=== PATIENT | female | born 1940 | race Caucasian/White ===

== ENCOUNTER 2018-06-18 20:01 | Emergency (ER) | payer MEDICARE, OTHER ==
--- NOTE | 2018-06-18 20:13 | EDM.PDOC ---
ED HPI GENERAL MEDICAL PROBLEM - General Chief Complaint: Trauma Stated Complaint: AMBULANCE Time Seen by Provider: 06/18/18 20:04 Source of Information: Reports: Patient History Limitations: Reports: No Limitations - History of Present Illness INITIAL COMMENTS - FREE TEXT/NARRATIVE: HISTORY AND PHYSICAL: History of present illness: 78-year-old [place] female presenting the emergency department by EMS after fall from standing position. Patient states that she was walking from one room to another when she went to turn and slipped on the "slick floor" falling forward onto her right side. She did not lose consciousness and denies hitting her head she denies any chest pain or shortness of breath prior to or after the event. Patient is currently complaining of neck, right shoulder, lower back, and left knee pain. Patient does have history of chronic back pain and has had multiple back surgeries in the past. States that she does have significant amount of hardware. She denies any bowel or bladder incontinence. On exam patient has some mild right shoulder pain, mid cervical tenderness, lower thoracic and lumbar pain. No bony step-offs or bony abnormalities noted on an entire exam. Left knee has good range of motion and is slightly tender to palpation however there are no visible trauma noted. Neurovascular intact. CT of the head showed no acute intracranial hemorrhage. There was moderate nodular patchy areas of abnormal low density in the white matter of both cerebral hemispheres that were indeterminate. May be related to moderately prominent small vessel ischemic disease but more nodular and focal than typical. Radiology did suggest comparison with any available previous head CTs or follow-up PET/CT or MRI to further characterize these findings. CT of the cervical spine showed no acute fracture subluxation. There was moderately prominent degenerative changes in the cervical spine as well as elvin and pedicle screw fixation upper thoracic spine. CBC, CMP unremarkable. CT of the thoracic spine showed multilevel spinal fixation with a chronic appearing compression deformity of T4 vertebral body with no definitive acute thoracic spine identified. CT of the lumbar spine showed multilevel thoracolumbar fixation and fusion with hardware. There was diffusely heterogeneous bony mineralization with ill- defined area of sclerosis and osseous lucency. Evaluation for fracture was limited secondary to hardware. There was no definite acute displaced fracture seen. Chest x-ray unremarkable Pelvis x-ray unremarkable Right shoulder x-ray unremarkable Left knee x-ray unremarkable Review of systems: As per history of present illness and below otherwise all systems reviewed and negative. Past medical history: As per history of present illness and as reviewed below otherwise noncontributory. Surgical history: As per history of present illness and as reviewed below otherwise noncontributory. Social history: No reported history of drug or alcohol abuse. Family history: As per history of present illness and as reviewed below otherwise noncontributory. Physical exam: HEENT: Atraumatic, normocephalic, pupils reactive, negative for conjunctival pallor or scleral icterus, mucous membranes moist, throat clear, neck supple, nontender, trachea midline. Lungs: Clear to auscultation, breath sounds equal bilaterally, chest nontender. Heart: S1S2, regular, negative for clicks, rubs, or JVD. Abdomen: Soft, nondistended, nontender. Negative for masses or hepatosplenomegaly. Negative for costovertebral tenderness. Pelvis: Stable nontender. Genitourinary: Deferred. Rectal: Deferred. Extremities: Atraumatic, negative for cords or calf pain. Neurovascular unremarkable. Neuro: Awake, alert, oriented. Cranial nerves II through XII unremarkable. Cerebellum unremarkable. Motor and sensory unremarkable throughout. Exam nonfocal. Diagnostics: CT head, neck, thoracic, lumbar spine. Pelvis x-ray, right shoulder x-ray, left knee x-ray, CBC, CMP, UA/UC, EKG, chest x-ray Therapeutics: [] Impression: Fall Contusion Plan: All radiologic findings were unremarkable. CBC and CMP were unremarkable as well. Patient fell secondary to a slip on the floor with no significant acute osseous abnormalities. Patient was discharged in good condition with instructions to use Tylenol for pain and follow-up with her primary care provider. She should also return to emergency department if any new or worsening symptoms. Definitive disposition and diagnosis as appropriate pending reevaluation and review of above. back Pain Score (Numeric/FACES): 3 - Related Data Allergies Allergy/AdvReac Type Severity Reaction Status Date / Time NSAIDS (Non-Steroidal Allergy Other Verified 06/18/18 20:23 Anti-Inflamma Home Meds: Home Meds Albuterol Sulfate [Proair Respiclick] 1 inhaler IH DAILY 06/18/18 [History] Calcium Carbonate/Vitamin D3 [Calcium Carb 500 MG] 1 tab PO DAILY 06/18/18 [ History] Fluticasone/Salmeterol [Advair 100-50] 1 inhalation IH DAILY 06/18/18 [History] Hydrocodone/Acetaminophen [Hydrocodon-Acetaminophn 10-325] 1 - 2 tab PO Q6H PRN 06/18/18 [History] Lisinopril 10 mg PO DAILY 06/18/18 [History] amLODIPine Besylate [Amlodipine Besylate] 5 mg PO DAILY 06/18/18 [History] atorvaSTATin [Lipitor] 10 mg PO BEDTIME 06/18/18 [History] Review of Systems - Review of Systems Review Of Systems: ROS reveals no pertinent complaints other than HPI. ED EXAM, GENERAL - Physical Exam Exam: See Below Course - Vital Signs Last Recorded V/S: Last Vital Signs Temp 97.7 F 06/18/18 20:13 Pulse 69 06/18/18 20:13 Resp 12 06/18/18 20:13 BP 112/55 L 06/18/18 20:13 Pulse Ox 97 06/18/18 20:13 - Orders/Labs/Meds Orders: Active Orders 24 hr Category Date Time Status EKG Documentation Completion [RC] STAT Care 06/18/18 20:16 Active CXR [Chest 1V Frontal] [CR] Stat Exams 06/18/18 20:16 Taken Cervical Spine wo Cont [CT] Stat Exams 06/18/18 20:13 Taken Head wo Cont [CT] Stat Exams 06/18/18 20:13 Taken Knee 3V Lt [CR] Stat Exams 06/18/18 20:17 Taken Lumbar Spine wo Cont [CT] Stat Exams 06/18/18 20:13 Taken Pelvis 1V or 2V [CR] Stat Exams 06/18/18 20:13 Taken Shoulder Comp Rt [CR] Stat Exams 06/18/18 20:14 Taken Thoracic Spine wo Cont [CT] Stat Exams 06/18/18 20:13 Taken CULTURE URINE [RM] Stat Lab 06/18/18 20:16 Ordered UA W/MICROSCOPIC [URIN] Stat Lab 06/18/18 20:16 Ordered Labs: Laboratory Tests 06/18/18 06/18/18 Range/Units 20:27 20:27 WBC 8.64 (4.0-11.0) K/uL RBC 4.10 L (4.30-5.90) M/uL Hgb 13.2 (12.0-16.0) g/dL Hct 39.3 (36.0-46.0) % MCV 95.9 (80.0-98.0) fL MCH 32.2 H (27.0-32.0) pg MCHC 33.6 (31.0-37.0) g/dL RDW Std Deviation 49.3 (28.0-62.0) fl RDW Coeff of Drew 14 (11.0-15.0) % Plt Count 222 (150-400) K/uL MPV 10.30 (7.40-12.00) fL Neut % (Auto) 72.1 (48.0-80.0) % Lymph % (Auto) 17.2 (16.0-40.0) % [place] % (Auto) 6.6 (0.0-15.0) % Eos % (Auto) 3.6 (0.0-7.0) % Baso % (Auto) 0.5 (0.0-1.5) % Neut # (Auto) 6.2 H (1.4-5.7) K/uL Lymph # (Auto) 1.5 (0.6-2.4) K/uL [place] # (Auto) 0.6 (0.0-0.8) K/uL Eos # (Auto) 0.3 (0.0-0.7) K/uL Baso # (Auto) 0.0 (0.0-0.1) K/uL Nucleated RBC % 0.0 /100WBC Nucleated RBCs # 0 K/uL Sodium 137 (136-145) mmol/L Potassium 4.1 (3.5-5.1) mmol/L Chloride 105 (98-107) mmol/L Carbon Dioxide 25.3 (21.0-32.0) mmol/L BUN 21 H (7.0-18.0) mg/dL Creatinine 1.1 H (0.6-1.0) mg/dL Est Cr Clr Drug Dosing 41.83 mL/min Estimated GFR (MDRD) 47.9 ml/min Glucose 104 (74-106) mg/dL Calcium 9.0 (8.5-10.1) mg/dL Total Bilirubin 0.3 (0.2-1.0) mg/dL AST 11 L (15-37) IU/L ALT 17 (14-63) IU/L Alkaline Phosphatase 129 H (46-116) U/L Total Protein 6.7 (6.4-8.2) g/dL Albumin 3.3 L (3.4-5.0) g/dL Globulin 3.4 (2.0-3.5) g/dL Albumin/Globulin Ratio 1.0 L (1.3-2.8) Departure - Departure Time of Disposition: 22:39 Disposition: Home, Self-Care 01 Condition: Good Clinical Impression: Fall Qualifiers: Encounter type: initial encounter Qualified Code(s): W19.XXXA - Unspecified fall, initial encounter Contusion Qualifiers: Encounter type: initial encounter Contusion area: shoulder Laterality: right Qualified Code(s): S40.011A - Contusion of right shoulder, initial encounter - Discharge Information Referrals: PCP,None [Primary Care Provider] - Forms: ED Department Discharge Additional Instructions: My general discharge The following information is given to patients seen in the emergency department who are being discharged to home. This information is to outline your options for follow-up care. We provide all patients seen in our emergency department with a follow-up referral. The need for follow-up, as well as the timing and circumstances, are variable depending upon the specifics of your emergency department visit. If you don't have a primary care physician on staff, we will provide you with a referral. We always advise you to contact your personal physician following an emergency department visit to inform them of the circumstance of the visit and for follow-up with them and/or the need for any referrals to a consulting specialist. The emergency department will also refer you to a specialist when appropriate. This referral assures that you have the opportunity for follow-up care with a specialist. All of these measure are taken in an effort to provide you with optimal care, which includes your follow-up. Under all circumstances we always encourage you to contact your private physician who remains a resource for coordinating your care. When calling for follow-up care, please make the office aware that this follow-up is from your recent emergency room visit. If for any reason you are refused follow-up, please contact the [facility] at and asked to speak to the emergency department charge nurse. [facility] [address] [place] [address] [id number] [address] [address] Please follow-up with primary care provider. Be sure to tell them he was seen in the emergency department and they wish for you to be seen as soon as possible. May take Tylenol for pain. Return to emergency department if any new or worsening symptoms. - My Orders Last 24 Hours: My Active Orders 06/18/18 20:13 Cervical Spine wo Cont [CT] Stat Head wo Cont [CT] Stat Lumbar Spine wo Cont [CT] Stat Pelvis 1V or 2V [CR] Stat Thoracic Spine wo Cont [CT] Stat 06/18/18 20:14 Shoulder Comp Rt [CR] Stat 06/18/18 20:16 EKG Documentation Completion [RC] STAT CXR [Chest 1V Frontal] [CR] Stat CULTURE URINE [RM] Stat UA W/MICROSCOPIC [URIN] Stat 06/18/18 20:17 Knee 3V Lt [CR] Stat - Assessment/Plan Last 24 Hours: My Active Orders 06/18/18 20:13 Cervical Spine wo Cont [CT] Stat Head wo Cont [CT] Stat Lumbar Spine wo Cont [CT] Stat Pelvis 1V or 2V [CR] Stat Thoracic Spine wo Cont [CT] Stat 06/18/18 20:14 Shoulder Comp Rt [CR] Stat 06/18/18 20:16 EKG Documentation Completion [RC] STAT CXR [Chest 1V Frontal] [CR] Stat CULTURE URINE [RM] Stat UA W/MICROSCOPIC [URIN] Stat 06/18/18 20:17 Knee 3V Lt [CR] Stat
--- NOTE | 2018-06-20 14:51 | CT ---
EXAM DATE: 06/18/18 PATIENT'S AGE: 78 Patient: JUSTEN BABB Facility: [place], [place] Site . Site : 1940 Study: CT Head [id number]/29/2018 9:11:25 PM Ordering Physician: Misha Alejo Final Report: INDICATION: Fell. Patient is on blood thinners. TECHNIQUE: CT head without IV contrast. FINDINGS: Moderately prominent nodular patchy areas of low density throughout the cerebral hemispheres bilaterally in the white matter is nonspecific and more focal than typically seen related to small vessel ischemic disease. Although the findings could be related to small vessel ischemic disease, it would be prudent to obtain comparison to any previous imaging of the head or possibly a followup CT or MRI could ensure that there is not related to pathology other than small vessel ischemic disease. Mild diffuse cerebral atrophy. No acute intracranial hemorrhage. 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 Remainder negative. IMPRESSION: 1. No acute intracranial hemorrhage. 2. Moderate nodular patchy areas of abnormal low-density in the white matter of both cerebral hemispheres indeterminate. This may be related to moderately prominent small vessel ischemic disease but is more nodular and focal than typical. Would suggest comparison with any available previous head CTs or follow -up PET-CT or MRI to further characterize these findings. Other findings as above Please note that all CT scans at this facility use dose modulation, iterative reconstruction, and/or weight-based dosing when appropriate to reduce radiation dose to as low as reasonably achievable. Dictated by Dash Parker MD @ Jun 18 2018 9:43PM (Electronic Signature) Report Signed by Proxy. [facility]
--- NOTE | 2018-06-20 14:56 | CT ---
EXAM DATE: 06/18/18 PATIENT'S AGE: 78 Patient: JUSTEN BABB Facility: [place], [place] Site . Site : 1940 Study: CT Spine Cervical [id number]/29/2018 9:11:48 PM Ordering Physician: Misha Alejo Final Report: INDICATION: Fall. Patient is on blood thinners. TECHNIQUE: CT cervical spine performed without IV contrast including axial, coronal and sagittal images. FINDINGS: No alterations sewer view was sent with this exam. Ahmet and pedicle screw fixation beginning at T1 and T2 is partially visualized on this study and not entirely included. Moderately prominent degenerate hypertrophic changes throughout the cervical spine with moderately prominent narrowing of the C3 through C7 interspaces with hypertrophic changes. No fracture or subluxation in cervical spine. Ossific debris about the odontoid is a chronic finding. Small calcified granuloma in the left upper lobe posteriorly. Mild scarring in the right upper lobe posteriorly. Moderate foraminal narrowing at several levels of the mid and lower cervical spine. This is greatest on the left. Remainder negative. IMPRESSION: 1. No acute fracture or subluxation in cervical spine. 2. Moderately prominent degenerative changes in the cervical spine as detailed above. 3. Ahmet and pedicle screw fixation upper thoracic spine only partially visualized on this study. Please note that all CT scans at this facility use dose modulation, iterative reconstruction, and/or weight-based dosing when appropriate to reduce radiation dose to as low as reasonably achievable. Dictated by Dash Parker MD @ Jun 18 2018 9:44PM (Electronic Signature) Report Signed by Proxy. ELVIA
--- NOTE | 2018-06-20 14:57 | CT ---
EXAM DATE: 06/18/18 PATIENT'S AGE: 78 Patient: JUSTEN BABB Facility: [place], [place] Site . Site : 1940 Study: CT Spine Thoracic [id number]/29/2018 9:22:17 PM Ordering Physician: Misha Alejo Final Report: INDICATION: Trauma TECHNIQUE: CT thoracic spine without contrast. COMPARISON: None available FINDINGS: Postsurgical changes are seen status post multilevel thoracolumbar posterior fixation with rods, interpedicular screws and cross links. The thoracic spine alignment is within normal limits. There is a pronounced compression deformity of the L4 vertebral body which appears chronic with fusion of the T4-5 disc as well as chronic deformities of the posteromedial 4th ribs. No gross acute thoracic spine fracture is seen, given the limitations of artifact related to the hardware. There are areas of apparent paravertebral soft tissue prominence at multiple levels, nonspecific. There are degenerative changes in the glenohumeral joints. IMPRESSION: Multilevel spinal fixation. A chronic appearing compression deformity of the T4 vertebral body. No definite acute thoracic spine fracture identified, given the limitations of artifact. Dictated by Virgilio Centeno MD @ 06/18/2018 10:24:46 PM Please note that all CT scans at this facility use dose modulation, iterative reconstruction, and/or weight-based dosing when appropriate to reduce radiation dose to as low as reasonably achievable. Dictated by: Virgilio Centeno MD @ 06/18/2018 22:24:53 (Electronic Signature) Report Signed by Proxy. [facility]
--- NOTE | 2018-06-20 15:01 | CT ---
EXAM DATE: 06/18/18 PATIENT'S AGE: 78 Patient: JUSTEN BABB Facility: [place], [place] Site . Site : 1940 Study: CT Spine Lumbar [id number]/29/2018 9:24:06 PM Ordering Physician: Misha Alejo Final Report: INDICATION: Trauma TECHNIQUE: CT lumbar spine without contrast. COMPARISON: None available FINDINGS: There are multilevel postsurgical changes with posterior fixation and fusion of the thoracolumbar spine, with rods and multilevel interpedicular screws. L3-L5 laminectomies are seen with L4-5 and L5-S1 disc spacers. Disk fusion is noted at multiple levels. There is a mild lumbar levoscoliotic deformity. There is diffusely heterogeneous mineralization in the mid and lower lumbar spine with ill-defined areas of osseous lucency and sclerosis, at least partially related to the postsurgical changes. Heterogeneous sclerosis is also seen adjacent to the sacroiliac joints, right greater than left. Foci of beam hardening artifact as well as areas of osseous demineralization limit evaluation for fracture. No definite displaced acute fracture is clearly seen. There is an ill-defined area of calcific density within the central canal at the L2 level, demonstrating linear configuration on the reformatted images, possibly partially artifactual. No paravertebral soft tissue mass is seen. There is cholelithiasis. Sigmoid diverticula are noted. IMPRESSION: Multilevel thoracolumbar fixation and fusion with hardware. Diffusely heterogeneous bony mineralization with ill-defined areas of sclerosis and osseous lucency. Evaluation for fracture is limited. A definite acute displaced fracture is not clearly seen. An apparent ill-defined linear calcific density within the central canal at the L2 level which could be partially artifactual. Dictated by Virgilio Centeno MD @ 06/18/2018 10:08:33 PM Please note that all CT scans at this facility use dose modulation, iterative reconstruction, and/or weight-based dosing when appropriate to reduce radiation dose to as low as reasonably achievable. Dictated by: Virgilio Centeno MD @ 06/18/2018 22:08:38 (Electronic Signature) Report Signed by Proxy. [facility]
--- NOTE | 2018-06-20 15:03 | CR ---
EXAM DATE: 06/18/18 PATIENT'S AGE: 78 Patient: JUSTEN BABB Facility: [place], [place] Site . Site : 1940 Study: XRay Chest [id number]/29/2018 9:37:18 PM Ordering Physician: Misha Alejo Final Report: Indication: Fall Technique: Chest 1 view Comparison: None Findings/Impression: Cardiovascular and mediastinum: Unremarkable cardiac size for portable technique. An ectatic, unfolded aorta. Lungs and pleural space: Mild left basilar subsegmental atelectasis. No pleural effusions. No pneumothorax seen. Bones and soft tissues: Multilevel thoracic fixation with rods, screws and a mid thoracic crosslink. Dictated by Virgilio Centeno MD @ 06/18/2018 10:15:46 PM Dictated by: Virgilio Centeno MD @ 06/18/2018 22:15:54 (Electronic Signature) Report Signed by Proxy. [facility]
--- NOTE | 2018-06-20 15:05 | CR ---
EXAM DATE: 06/18/18 PATIENT'S AGE: 78 Patient: JUSTEN BABB Facility: [place], [place] Site . Site : 1940 Study: XRay Shoulder Right [id number]/29/2018 9:38:12 PM Ordering Physician: Misha Alejo Final Report: Indication: Injury and pain Technique: Right shoulder 2 views Comparison: None Findings: Bones: Alignment is normal. No fractures or bone lesions. Joint spaces: Moderate arthritic changes are present. Soft tissues: Unremarkable. Impression: No sign of acute injury. Dictated by Xavier Tay MD @ Jun 18 2018 10:18PM (Electronic Signature) Report Signed by Proxy. [facility]
--- NOTE | 2018-06-20 15:05 | CR ---
EXAM DATE: 06/18/18 PATIENT'S AGE: 78 Patient: JUSTEN BABB Facility: [place], [place] Site . Site : 1940 Study: XRay Pelvis [id number]/29/2018 9:37:51 PM Ordering Physician: Misha Alejo Final Report: Indication: Injury and pain Technique: Pelvis 1 views Comparison: None Findings: Bones: There is hardware fusion of the lumbosacral spine including both sacroiliac joints. Bone alignment is normal. No sign of acute fracture. Joint spaces: Unremarkable. Soft tissues: Unremarkable. Impression: No sign of acute injury. Dictated by Xavier Tay MD @ Jun 18 2018 10:15PM (Electronic Signature) Report Signed by Proxy. [facility]
--- NOTE | 2018-06-20 15:06 | CR ---
EXAM DATE: 06/18/18 PATIENT'S AGE: 78 Patient: JUSTEN BABB Facility: [place], [place] Site . Site : 1940 Study: XRay Knee Left [id number]/29/2018 9:38:43 PM Ordering Physician: Misha Alejo Final Report: Indication: Injury and pain Technique: Left knee 2 views Comparison: None Findings: Bones: Alignment is normal. No fractures or bone lesions. 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 Joint spaces: Unremarkable. No joint effusion. Soft tissues: Unremarkable. Impression: No sign of acute injury. Dictated by Xavier Tay MD @ Jun 18 2018 10:19PM (Electronic Signature) Report Signed by Proxy. [facility]
== END 2018-06-18 23:31 | disposition home or self-care (01) ==
LOC: MW.ED 20:01
DX: S40.011A Contusion of right shoulder, initial encounter (principal); S80.01XA Contusion of right knee, initial encounter; S30.0XXA Contusion of lower back and pelvis, initial encounter; M54.2 Cervicalgia; W19.XXXA Unspecified fall, initial encounter; Z88.8 Allergy status to other drugs, medicaments and biological substances
CPT/HCPCS: 36415; 70450; 70450-26; 71045; 71045-26; 72125; 72125-26; 72128; 72128-26; 72131; 72131-26; 72170; 72170-26; 73030-26-RT; 73030-RT; 73562-26-LT; 73562-LT; 80053; 85025; 93005; 99283; 99285-25

== ENCOUNTER 2019-09-15 18:13 | Inpatient (IN) | payer MEDICARE, OTHER ==
--- NOTE | 2019-09-15 19:13 | EDM.PDOC ---
ED HPI GENERAL MEDICAL PROBLEM - General Chief Complaint: Lower Extremity Injury/Pain Stated Complaint: KNEE INJURY Time Seen by Provider: 09/15/19 19:03 Source of Information: Reports: Patient, Family, RN Notes Reviewed History Limitations: Reports: No Limitations, Other - History of Present Illness INITIAL COMMENTS - FREE TEXT/NARRATIVE: 79-year-old female presents the emergency room after fall on her knee. She has left knee pain and swelling. Patient has had multiple knee replacements. Is also demented. Therefore her son is assisting with a history Onset: Today Duration: Hour(s):, Improving Location: Reports: Lower Extremity, Right Quality: Reports: Pressure Severity: Mild Improves with: Reports: Cold Therapy Associated Symptoms: Reports: No Other Symptoms left knee Pain Score (Numeric/FACES): 5 - Related Data Allergies Allergy/AdvReac Type Severity Reaction Status Date / Time NSAIDS (Non-Steroidal Allergy Other Verified 06/18/18 20:23 Anti-Inflamma Home Meds: Home Meds Albuterol Sulfate [Proair Respiclick] 1 inhaler IH DAILY 06/18/18 [History] Calcium Carbonate/Vitamin D3 [Calcium Carb 500 MG] 1 tab PO DAILY 06/18/18 [ History] Fluticasone/Salmeterol [Advair 100-50] 1 inhalation IH DAILY 06/18/18 [History] Hydrocodone/Acetaminophen [Hydrocodon-Acetaminophn 10-325] 1 - 2 tab PO Q6H PRN 06/18/18 [History] Lisinopril 10 mg PO DAILY 06/18/18 [History] amLODIPine Besylate [Amlodipine Besylate] 5 mg PO DAILY 06/18/18 [History] atorvaSTATin [Lipitor] 10 mg PO BEDTIME 06/18/18 [History] Past Medical History Other HEENT History: dry eyes Cardiovascular History: Reports: High Cholesterol Gastrointestinal History: Reports: Irritable Bowel Syndrome Musculoskeletal History: Reports: Arthritis, Fibromyalgia Psychiatric History: Reports: Anxiety, Depression - Past Surgical History Musculoskeletal Surgical History: Reports: Knee Replacement Social & Family History - Family History Family Medical History: Noncontributory - Tobacco Use Smoking Status *Q: Former Smoker Used Tobacco, but Quit: Yes Month/Year Tobacco Last Used: 09/1979 - Caffeine Use Caffeine Use: Reports: Coffee - Recreational Drug Use Recreational Drug Use: No Review of Systems - Review of Systems Review Of Systems: Comprehensive ROS is negative, except as noted in HPI. Constitutional: Reports: No Symptoms Eyes: Reports: No Symptoms Ears: Reports: No Symptoms Nose: Reports: No Symptoms Mouth/Throat: Reports: No Symptoms Respiratory: Reports: No Symptoms Cardiovascular: Reports: No Symptoms GI/Abdominal: Reports: No Symptoms Genitourinary: Reports: No Symptoms Musculoskeletal: Reports: Leg Pain, Other (Right knee pain and swelling) Skin: Reports: Bruising (Over right knee) Neurological: Reports: Confusion (Dementia), Difficulty Walking Psychiatric: Reports: Confusion (History of dementia) ED EXAM, GENERAL - Physical Exam Exam: See Below Free Text/Narrative:: Goal exam Patient has swelling to the right knee with bruising. Patient has full range of motion but has pain. Patient has no pain in the hips or lower legs. Rest of exam is normal. Exam Limited By: No Limitations General Appearance: Alert, WD/WN, No Apparent Distress Eye Exam: Bilateral Eye: PERRL Ears: Normal External Exam, Normal Canal, Hearing Grossly Normal Ear Exam: Bilateral Ear: Auricle Normal, Canal Normal, TM normal Nose: Normal Inspection, Normal Mucosa, No Blood Throat/Mouth: Normal Inspection, Normal Lips, Normal Teeth, Normal Gums, Normal Oropharynx Head: Atraumatic, Normocephalic Neck: Normal Inspection, Supple, Non-Tender Respiratory/Chest: No Respiratory Distress Cardiovascular: Normal Peripheral Pulses GI/Abdominal: Normal Bowel Sounds, Soft Extremities: Joint Swelling, Leg Pain, Limited Range of Motion Neurological: Alert, Oriented, CN II-XII Intact, Confused Psychiatric: Normal Affect Skin Exam: Warm (Patient has bruising over the knee) Lymphatic: No Adenopathy Course - Vital Signs Last Recorded V/S: Last Vital Signs Temp 97.3 F 09/15/19 18:16 Pulse 70 09/15/19 18:16 Resp 18 09/15/19 18:16 BP 143/68 H 09/15/19 18:16 Pulse Ox 96 09/15/19 18:16 79-year-old female fell today and injured her left knee. Patient has swelling full range of motion. X-rays reveal fracture. Patient will be given pain medicine - Orders/Labs/Meds Orders: Active Orders 24 hr Category Date Time Status Knee 3V Lt [CR] Stat Exams 09/15/19 18:26 Taken Departure - Departure Time of Disposition: 19:24 Disposition: Home, Self-Care 01 Condition: Good Clinical Impression: Contusion of knee - Discharge Information Instructions: How to Use a Knee Immobilizer, [id number], Contusion, Easy-to- Read Sepsis Event Note - Evaluation Sepsis Screening Result: No Definite Risk - Focused Exam Vital Signs: Vital Signs Temp Pulse Resp BP Pulse Ox 09/15/19 18:16 97.3 F 70 18 143/68 H 96 Date Exam was Performed: 09/15/19 Time Exam was Performed: 19:08
--- NOTE | 2019-09-15 19:14 | CR ---
INDICATION: Trauma TECHNIQUE: Views left knee COMPARISON: 06/18/2018 FINDINGS: Bones: Alignment is normal. No fractures or bone lesions. Joint spaces: Knee arthroplasty. Soft tissues: Large pre patellar edema/hematoma. IMPRESSION: Large prepatellar edema/hematoma. Dictated by Kadeem Davila MD @ 09/15/2019 7:11:34 PM Dictated by: Kadeem Davila MD @ 09/15/2019 19:11:47 (Electronically Signed)
[2019-09-15] MEDS ORDERED: Acetaminophen/HYDROcodone 325-10 MG Tab PO ONE (19:21)
--- NOTE | 2019-09-15 23:45 | PCM.HP.2 ---
H&P History of Present Illness - General Admit Problem/Dx: Admission Diagnosis/Problem Admission Diagnosis/Problem Contusion of knee left knee Pain Score (Numeric/FACES): 5 - Related Data Allergies/Adverse Reactions: Allergies Allergy/AdvReac Type Severity Reaction Status Date / Time NSAIDS (Non-Steroidal Allergy Other Verified 06/18/18 20:23 Anti-Inflamma Home Medications: Home Meds Albuterol Sulfate [Proair Respiclick] 1 inhaler IH DAILY 06/18/18 [History] Calcium Carbonate/Vitamin D3 [Calcium Carb 500 MG] 1 tab PO DAILY 06/18/18 [ History] Fluticasone/Salmeterol [Advair 100-50] 1 inhalation IH DAILY 06/18/18 [History] Hydrocodone/Acetaminophen [Hydrocodon-Acetaminophn 10-325] 1 - 2 tab PO Q6H PRN 06/18/18 [History] Lisinopril 10 mg PO DAILY 06/18/18 [History] amLODIPine Besylate [Amlodipine Besylate] 5 mg PO DAILY 06/18/18 [History] atorvaSTATin [Lipitor] 10 mg PO BEDTIME 06/18/18 [History] Past Medical History Other HEENT History: dry eyes Cardiovascular History: Reports: High Cholesterol Gastrointestinal History: Reports: Irritable Bowel Syndrome Musculoskeletal History: Reports: Arthritis, Fibromyalgia Psychiatric History: Reports: Anxiety, Depression - Past Surgical History Musculoskeletal Surgical History: Reports: Knee Replacement Social & Family History - Family History Family Medical History: Noncontributory - Tobacco Use Smoking Status *Q: Former Smoker Years of Tobacco use: 20 Used Tobacco, but Quit: Yes Month/Year Tobacco Last Used: 30 - Caffeine Use Caffeine Use: Reports: Coffee, Soda - Recreational Drug Use Recreational Drug Use: No Exam - Vital Signs Vital Signs: Last Vital Signs Temp 36.2 C 09/15/19 21:30 Pulse 66 09/15/19 21:30 Resp 18 09/15/19 21:30 BP 126/64 09/15/19 21:30 Pulse Ox 96 09/15/19 21:30 Weight: 114.305 kg Sepsis Event Note - Evaluation Sepsis Screening Result: No Definite Risk - Focused Exam Vital Signs: Vital Signs Temp Pulse Resp BP Pulse Ox 09/15/19 21:30 36.2 C 66 18 126/64 96 09/15/19 18:16 36.3 C 70 18 143/68 H 96 Date Exam was Performed: 09/15/19 Time Exam was Performed: 23:45 Orders Last 24hrs: Active Orders 24 hr Category Date Time Status Admission Status [Patient Status] [ADT] Stat ADT 09/15/19 21:32 Active DME for Discharge [COMM] Stat Oth 09/15/19 19:21 Ordered
[2019-09-16] MEDS: Acetaminophen/HYDROcodone 325-10 MG Tab PO PRN ×2 (07:01→13:56)
[2019-09-16 07:19] LABS: CARBON DIOXIDE,CO2 26.1 mmol/L (21.0-32.0); POTASSIUM,K 4.4 mmol/L (3.5-5.1)
[2019-09-16] MEDS: Lisinopril 10 MG Tab PO SCH (10:11)
[2019-09-16] MEDS: amLODIPine 5 MG Tab PO SCH (10:11)
[2019-09-16] MEDS: Albuterol 8 GM Inhaler INH SCH (10:18)
[2019-09-16] MEDS: Fluticasone/Salmeterol 100-50 MCG Inhalation Powder 14/Diskus INH SCH (10:22)
[2019-09-16] MEDS: Heparin Sodium 5,000 Units/ML Vial SUBCUT SCH ×2 (11:54→18:36)
--- NOTE | 2019-09-16 13:20 | PCM.HP.2 ---
H&P History of Present Illness - General Date of Service: 09/16/19 Admit Problem/Dx: Admission Diagnosis/Problem Admission Diagnosis/Problem Contusion of knee Source of Information: Patient, Old Records - History of Present Illness Initial Comments - Free Text/Narative: Patient is a 79-year-old female with a significant past medical history of hypercholesterolemia, hypertension presenting yesterday after having a fall causing a contusion to the left knee. She has a history of left knee replacement and also does have a history of dementia. ED Course: X-ray of knee showed no acute fracture and or dislocation. Significant swelling appreciated at discharge ;patient was unable to ambulate secondary to pain. Admitted for observation Bedside: Patient endorsing minimal pain in left knee. States she can move her knee however cannot recall some of the details of the fall. Patient does have a history of dementia per chart review; patient however is not sure about this diagnosis. left knee Pain Score (Numeric/FACES): 5 - Related Data Allergies/Adverse Reactions: Allergies Allergy/AdvReac Type Severity Reaction Status Date / Time NSAIDS (Non-Steroidal Allergy Other Verified 09/16/19 11:43 Anti-Inflamma Home Medications: Home Meds Albuterol Sulfate [Proair Respiclick] 2 puff INH Q4H PRN 06/18/18 [History] Fluticasone/Salmeterol [Advair 100-50] 1 puff INH BID 06/18/18 [History] Lisinopril 10 mg PO DAILY 06/18/18 [History] amLODIPine Besylate [Amlodipine Besylate] 5 mg PO DAILY 06/18/18 [History] atorvaSTATin [Lipitor] 10 mg PO BEDTIME 06/18/18 [History] Acetaminophen [Tylenol] 650 mg PO Q4H PRN 09/16/19 [History] Amoxicillin 2,000 mg PO ONETIME PRN 09/16/19 [History] Aspirin [Halfprin] 81 mg PO DAILY 09/16/19 [History] Calcium Carbonate [Calcium] 600 mg PO TID 09/16/19 [History] Carboxymethylcellulose Sodium [Refresh Tears] 1 drop EYEBOTH BID 09/16/19 [ History] Cholecalciferol (Vitamin D3) [Vitamin D3] 1,000 unit PO DAILY 09/16/19 [History] Dextran 70/Hypromellose [Artificial Tears Eye Drops] 1 drop EYEBOTH Q6H PRN [History] Docusate Sodium [Colace] 100 mg PO BID 09/16/19 [History] Erythromycin Base [Erythromycin 0.5% Ophth Oint] 1 applic EYEBOTH BID 09/16/19 [ History] Folic Acid 1 mg PO DAILY 09/16/19 [History] Hydrocodone/Acetaminophen [Hydrocodon-Acetaminophn 10-325] 1 each PO BID [History] Hydrocodone/Acetaminophen [Hydrocodon-Acetaminophn 10-325] 1 tab PO ASDIRECTED PRN 09/16/19 [History] Loperamide HCl [Imodium A-D] 2 mg PO ASDIRECTED PRN 09/16/19 [History] Mag Hydrox/Al Hydrox/Simeth [Maalox Maximum Strength Susp] 1 tbsp PO Q6H PRN [History] Magnesium Hydroxide [Milk of Magnesia] 30 ml PO DAILY PRN 09/16/19 [History] Venlafaxine HCl [Venlafaxine ER] 150 mg PO DAILY 09/16/19 [History] guaiFENesin 100 mg PO Q4H PRN 09/16/19 [History] Past Medical History Other HEENT History: dry eyes Cardiovascular History: Reports: High Cholesterol Gastrointestinal History: Reports: Irritable Bowel Syndrome Musculoskeletal History: Reports: Arthritis, Fibromyalgia Psychiatric History: Reports: Anxiety, Depression - Past Surgical History Musculoskeletal Surgical History: Reports: Knee Replacement Social & Family History - Family History Family Medical History: Noncontributory - Tobacco Use Smoking Status *Q: Former Smoker Years of Tobacco use: 20 Used Tobacco, but Quit: Yes Month/Year Tobacco Last Used: 30 - Caffeine Use Caffeine Use: Reports: Coffee, Soda - Recreational Drug Use Recreational Drug Use: No H&P Review of Systems - Review of Systems: Review Of Systems: See Below General: Denies: Fever, Chills HEENT: Reports: No Symptoms Pulmonary: Reports: No Symptoms Cardiovascular: Reports: No Symptoms Gastrointestinal: Reports: No Symptoms Genitourinary: Reports: No Symptoms. Denies: Dysuria, Frequency, Burning, Pain , Urgency Musculoskeletal: Reports: Other (knee pain w/ swelling ) Skin: Reports: Other (ecchmosis over left orbit) Psychiatric: Denies: Confusion Neurological: Reports: Other (some mild memory recall issues ). Denies: Confusion, Dizziness Exam - Exam Exam: See Below - Vital Signs Vital Signs: Last Vital Signs Temp 98.2 F 09/16/19 11:00 Pulse 80 09/16/19 11:00 Resp 18 09/16/19 11:00 BP 114/60 09/16/19 11:00 Pulse Ox 93 L 09/16/19 11:00 Weight: 252 lb - Exam General: Alert, Oriented, Cooperative HEENT: EOMI, Other (ecchymosis noted over medial aspect of left orbit; EOM intact; no other defects appreciated. ) Neck: Supple, Trachea Midline Lungs: Clear to Auscultation, Normal Respiratory Effort Cardiovascular: Regular Rate, Regular Rhythm Extremities: Other (left knee: significant soft tissue swelling w/ pain w. active/passive ROM. bleb formation over anterior knee; skin avulsion adjacent to bleb formation; no active bleeding; no popliteal cj swelling or tenderness. ) Skin: Warm, Dry Neuro Extensive - Mental Status: Alert, Oriented x3, Normal Mood/Affect, Memory Loss-Recent Events Neuro Extensive - Motor, Sensory, Reflexes: CN II-XII Intact - Patient Data Lab Results Last 24 hrs: Laboratory Results - last 24 hr 09/16/19 09/16/19 Range/Units 06:30 06:30 WBC 6.12 (4.0-11.0) K/uL RBC 3.75 L (4.30-5.90) M/uL Hgb 11.9 L (12.0-16.0) g/dL Hct 36.3 (36.0-46.0) % MCV 96.8 (80.0-98.0) fL MCH 31.7 (27.0-32.0) pg MCHC 32.8 (31.0-37.0) g/dL RDW Std Deviation 49.7 (28.0-62.0) fl RDW Coeff of Drew 14 (11.0-15.0) % Plt Count 217 (150-400) K/uL MPV 10.80 (7.40-12.00) fL Neut % (Auto) 66.4 (48.0-80.0) % Lymph % (Auto) 18.1 (16.0-40.0) % [place] % (Auto) 9.8 (0.0-15.0) % Eos % (Auto) 5.4 (0.0-7.0) % Baso % (Auto) 0.3 (0.0-1.5) % Neut # (Auto) 4.1 (1.4-5.7) K/uL Lymph # (Auto) 1.1 (0.6-2.4) K/uL [place] # (Auto) 0.6 (0.0-0.8) K/uL Eos # (Auto) 0.3 (0.0-0.7) K/uL Baso # (Auto) 0.0 (0.0-0.1) K/uL Nucleated RBC % 0.0 /100WBC Nucleated RBCs # 0 K/uL Sodium 139 (136-145) mmol/L Potassium 4.4 (3.5-5.1) mmol/L Chloride 107 (98-107) mmol/L Carbon Dioxide 26.1 (21.0-32.0) mmol/L BUN 24 H (7.0-18.0) mg/dL Creatinine 1.0 (0.6-1.0) mg/dL Est Cr Clr Drug Dosing 45.26 mL/min Estimated GFR (MDRD) 53.3 ml/min Glucose 99 (74-106) mg/dL Calcium 8.7 (8.5-10.1) mg/dL Result Diagrams: 09/16/19 06:30 09/16/19 06:30 Sepsis Event Note - Evaluation Sepsis Screening Result: No Definite Risk - Focused Exam Vital Signs: Vital Signs Temp Pulse Resp BP BP Pulse Ox 09/16/19 11:00 98.2 F 80 18 114/60 93 L 09/16/19 10:11 102/60 09/16/19 07:48 96.7 F 83 16 118/58 L 94 L 09/16/19 04:00 98.0 F 65 15 119/77 95 Date Exam was Performed: 09/16/19 Time Exam was Performed: 13:28 Problem List Initiated/Reviewed/Updated: Yes Orders Last 24hrs: Active Orders 24 hr Category Date Time Status Admission Status [Patient Status] [ADT] Stat ADT 09/15/19 21:32 Active Antiembolic Devices [RC] PER UNIT ROUTINE Care 09/16/19 00:53 Active Oxygen Therapy [RC] PRN Care 09/16/19 00:52 Active VTE/DVT Education [RC] PER UNIT ROUTINE Care 09/16/19 00:52 Active Vital Signs [RC] Q4H Care 09/16/19 00:52 Active PT Evaluation and Treatment [CONS] Routine Cons 09/16/19 00:52 Active Regular Diet [DIET] Diet 09/16/19 Breakfast Active Acetaminophen/HYDROcodone [[place] 325-10 MG] Med 09/16/19 00:57 Active 1 tab PO Q6H PRN Albuterol [Ventolin HFA] Med 09/16/19 09:00 Active 1 gm INH DAILY Fluticasone/Salmeterol [Advair Diskus 100-50] Med 09/16/19 09:00 Active 1 puff INH DAILY Heparin Sodium Med 09/16/19 11:30 Active 5,000 units SUBCUT Q8H amLODIPine [Norvasc] Med 09/16/19 09:00 Active 5 mg PO DAILY atorvaSTATin [Lipitor] Med 09/16/19 21:00 Active 10 mg PO BEDTIME lisinopriL [Prinivil] Med 09/16/19 09:00 Active 10 mg PO DAILY DME for Discharge [COMM] Stat Oth 09/15/19 19:21 Ordered Sequential Compression Device [OM.PC] Per Unit Routine Oth 09/16/19 00:53 Ordered Resuscitation Status Routine Resus Stat 09/16/19 00:52 Ordered Medication Orders Hydrocodone Bitart/Acetaminophen ([place] 325-10 Mg) 1 tab PO Q6H PRN PRN Reason: Pain Last Admin: 09/16/19 07:01 Dose: 1 tab Albuterol (Ventolin Hfa) 1 gm INH DAILY [facility] Last Admin: 09/16/19 10:18 Dose: 1 gm Amlodipine Besylate (Norvasc) 5 mg PO DAILY [facility] Last Admin: 09/16/19 10:11 Dose: Not Given Atorvastatin Calcium (Lipitor) 10 mg PO BEDTIME [facility] Heparin Sodium (Porcine) (Heparin Sodium) 5,000 units SUBCUT Q8H [facility] Last Admin: 09/16/19 11:54 Dose: 5,000 units Lisinopril (Prinivil) 10 mg PO DAILY [facility] Last Admin: 09/16/19 10:11 Dose: Not Given Fluticasone/Salmeterol (Advair Diskus 100-50) 1 puff INH DAILY [facility] Last Admin: 09/16/19 10:22 Dose: 1 puff Assessment/Plan Comment:: Assessment: 1. Left knee contusion s/p fall 2. PMH of HTN,hypercholesterolemia, dementia Plan: Admit to observation. DVT prophylaxis: heparin 5000 q8hrs 1. Left knee: swelling noted; continue to monitor at this time. PT/OT ordered; will await recommendations ; X-ray: no acute fx/dislo appreciated. Monitor swelling 2. Continue home medications 3. Will speak with family regarding full story as pt. appears to exhibit signs of dementia.
--- NOTE | 2019-09-16 14:48 | CT ---
INDICATION: Fall. COMPARISON: None. TECHNIQUE: Noncontrast CT of the head. FINDINGS: Mild to moderate generalized volume loss. No acute intracranial hemorrhage, acute infarct, mass effect, or fracture. No midline shift. Patchy low-attenuation change within the white matter consistent with chronic small vessel ischemic changes. Normal calvarium and skull base. Visualized paranasal sinuses and mastoid air cells are clear. Intracranial carotid artery calcifications. Normal orbits bilaterally. IMPRESSION: 1. No acute intracranial abnormality. 2. Mild to moderate generalized volume loss. Chronic deep white matter small vessel ischemic changes. Please note that all CT scans at this facility use dose modulation, iterative reconstruction, and/or weight-based dosing when appropriate to reduce radiation dose to as low as reasonably achievable. Dictated by Oswaldo Kent MD @ Sep 16 2019 2:44PM Signed by Dr. Oswaldo Kent @ Sep 16 2019 2:46PM
[2019-09-16] MEDS: Melatonin 3 MG Tab PO PRN (20:56)
[2019-09-16] MEDS: Docusate Sodium 100 MG Cap PO SCH (20:56)
[2019-09-16] MEDS: atorvaSTATin 10 MG Tab PO SCH (20:56)
[2019-09-17] MEDS: Heparin Sodium 5,000 Units/ML Vial SUBCUT SCH ×3 (04:06→18:40)
[2019-09-17 06:26] LABS: CARBON DIOXIDE,CO2 26.8 mmol/L (21.0-32.0); POTASSIUM,K 4.2 mmol/L (3.5-5.1)
[2019-09-17] MEDS: Fluticasone/Salmeterol 100-50 MCG Inhalation Powder 14/Diskus INH SCH (08:34)
[2019-09-17] MEDS: Aspirin 81 MG Tab.EC PO SCH (08:35)
[2019-09-17] MEDS: amLODIPine 5 MG Tab PO SCH (08:35)
[2019-09-17] MEDS: Docusate Sodium 100 MG Cap PO SCH ×2 (08:35→20:30)
[2019-09-17] MEDS: Albuterol 8 GM Inhaler INH SCH (08:35)
[2019-09-17] MEDS: Lisinopril 10 MG Tab PO SCH (08:36)
[2019-09-17] MEDS: Venlafaxine 75 MG Cap.ER PO SCH (08:36)
--- NOTE | 2019-09-17 13:29 | PCM.PN ---
- General Info Date of Service: 09/17/19 - Review of Systems Systems Review Comment:: patient is sundowning at night - Patient Data Vitals - Most Recent: Last Vital Signs Temp 36.7 C 09/17/19 11:00 Pulse 81 09/17/19 11:00 Resp 18 09/17/19 11:00 BP 119/58 L 09/17/19 11:00 Pulse Ox 93 L 09/17/19 11:00 Weight - Most Recent: 114.305 kg I&O - Last 24 Hours: Intake & Output 09/16/19 09/17/19 09/17/19 22:59 06:59 14:59 Intake Total 740 540 Output Total 450 Balance 740 90 Lab Results Last 24 Hours: Laboratory Results - last 24 hr 09/17/19 09/17/19 Range/Units 05:55 05:55 WBC 5.85 (4.0-11.0) K/uL RBC 3.68 L (4.30-5.90) M/uL Hgb 11.7 L (12.0-16.0) g/dL Hct 35.6 L (36.0-46.0) % MCV 96.7 (80.0-98.0) fL MCH 31.8 (27.0-32.0) pg MCHC 32.9 (31.0-37.0) g/dL RDW Std Deviation 49.9 (28.0-62.0) fl RDW Coeff of Drew 14 (11.0-15.0) % Plt Count 210 (150-400) K/uL MPV 10.70 (7.40-12.00) fL Neut % (Auto) 60.7 (48.0-80.0) % Lymph % (Auto) 21.2 (16.0-40.0) % [place] % (Auto) 11.8 (0.0-15.0) % Eos % (Auto) 5.6 (0.0-7.0) % Baso % (Auto) 0.7 (0.0-1.5) % Neut # (Auto) 3.6 (1.4-5.7) K/uL Lymph # (Auto) 1.2 (0.6-2.4) K/uL [place] # (Auto) 0.7 (0.0-0.8) K/uL Eos # (Auto) 0.3 (0.0-0.7) K/uL Baso # (Auto) 0.0 (0.0-0.1) K/uL Nucleated RBC % 0.0 /100WBC Nucleated RBCs # 0 K/uL Sodium 141 (136-145) mmol/L Potassium 4.2 (3.5-5.1) mmol/L Chloride 106 (98-107) mmol/L Carbon Dioxide 26.8 (21.0-32.0) mmol/L BUN 25 H (7.0-18.0) mg/dL Creatinine 1.0 (0.6-1.0) mg/dL Est Cr Clr Drug Dosing 45.26 mL/min Estimated GFR (MDRD) 53.3 ml/min Glucose 110 H (74-106) mg/dL Calcium 8.8 (8.5-10.1) mg/dL Med Orders - Current: Current Medications Hydrocodone Bitart/Acetaminophen ([place] 325-10 Mg) 1 tab PO Q6H PRN PRN Reason: Pain Last Admin: 09/16/19 13:56 Dose: 1 tab Albuterol (Ventolin Hfa) 1 gm INH DAILY [facility] Last Admin: 09/17/19 08:35 Dose: 1 gm Amlodipine Besylate (Norvasc) 5 mg PO DAILY [facility] Last Admin: 09/17/19 08:35 Dose: 5 mg Aspirin (Halfprin) 81 mg PO DAILY [facility] Last Admin: 09/17/19 08:35 Dose: 81 mg Atorvastatin Calcium (Lipitor) 10 mg PO BEDTIME [facility] Last Admin: 09/16/19 20:56 Dose: 10 mg Docusate Sodium (Colace) 100 mg PO BID [facility] Last Admin: 09/17/19 08:35 Dose: 100 mg Heparin Sodium (Porcine) (Heparin Sodium) 5,000 units SUBCUT Q8H [facility] Last Admin: 09/17/19 11:29 Dose: 5,000 units Lisinopril (Prinivil) 10 mg PO DAILY [facility] Last Admin: 09/17/19 08:36 Dose: 10 mg Melatonin (Melatonin) 3 mg PO BEDTIME PRN PRN Reason: Insomnia Last Admin: 09/16/19 20:56 Dose: 3 mg Fluticasone/Salmeterol (Advair Diskus 100-50) 1 puff INH DAILY [facility] Last Admin: 09/17/19 08:34 Dose: 1 puff Venlafaxine HCl (Effexor Xr) 150 mg PO DAILY [facility] Last Admin: 09/17/19 08:36 Dose: 150 mg Discontinued Medications Hydrocodone Bitart/Acetaminophen ([place] 325-10 Mg) 1 tab PO ONETIME ONE Stop: 09/15/19 19:22 Last Admin: 09/15/19 19:31 Dose: 1 tab - Exam General: No: Oriented Lungs: Clear to Auscultation, Normal Respiratory Effort Cardiovascular: Regular Rate, Regular Rhythm GI/Abdominal Exam: Soft, Non-Tender Extremities: Other (edema or right knee stable) Sepsis Event Note - Evaluation Sepsis Screening Result: No Definite Risk - Focused Exam Vital Signs: Vital Signs Temp Pulse Resp BP BP Pulse Ox 09/17/19 11:00 36.7 C 81 18 119/58 L 93 L 09/17/19 08:36 119/65 09/17/19 08:35 119/65 09/17/19 07:34 36.2 C 78 16 135/81 96 09/17/19 04:25 36.1 C 83 16 127/68 95 Date Exam was Performed: 09/17/19 Time Exam was Performed: 13:27 - Problem List Review Problem List Initiated/Reviewed/Updated: Yes - My Orders Last 24 Hours: My Active Orders 09/16/19 21:00 atorvaSTATin [Lipitor] 10 mg PO BEDTIME 09/17/19 13:25 Admission Status [Patient Status] [ADT] Routine UA RFX LOCO AND CULT IF INDIC [URIN] Routine 09/18/19 05:11 BASIC METABOLIC PANEL,BMP [CHEM] AM CBC WITH AUTO DIFF [HEME] AM - Plan Plan:: 79 yo female admitted with left knee contusion. She has history of dementia and know is displaying signs of delirium due to acute injury and hospitalization. Will continue PT.
[2019-09-17] MEDS: Acetaminophen/HYDROcodone 325-10 MG Tab PO PRN (18:48)
[2019-09-17] MEDS: atorvaSTATin 10 MG Tab PO SCH (20:27)
[2019-09-17] MEDS: Melatonin 3 MG Tab PO PRN (21:59)
[2019-09-18] MEDS: Heparin Sodium 5,000 Units/ML Vial SUBCUT SCH ×3 (03:51→19:12)
[2019-09-18 06:13] LABS: CARBON DIOXIDE,CO2 27.1 mmol/L (21.0-32.0); POTASSIUM,K 4.1 mmol/L (3.5-5.1)
--- NOTE | 2019-09-18 08:12 | PCM.PN ---
- General Info Date of Service: 09/18/19 Admission Dx/Problem (Free Text): L knee contusion, fall Subjective Update: Sleeping this morning, denies pain. No SOB of chest pain. Functional Status: Reports: Pain Controlled, Tolerating Diet, Ambulating (Up with assistance of nurse, gait belt and walker) - Review of Systems Gastrointestinal: Reports: No Symptoms. Denies: Abdominal Pain Genitourinary: Reports: No Symptoms. Denies: Dysuria, Frequency Musculoskeletal: Reports: Joint Pain (intermittent pain to L knee, improved.) Neurological: Reports: No Symptoms Psychiatric: Reports: No Symptoms - Patient Data Vitals - Most Recent: Last Vital Signs Temp 97.0 F 09/18/19 08:00 Pulse 65 09/18/19 08:00 Resp 18 09/18/19 08:00 BP 115/60 09/18/19 08:00 Pulse Ox 96 09/18/19 08:00 Weight - Most Recent: 114.305 kg I&O - Last 24 Hours: Intake & Output 09/17/19 09/18/19 09/18/19 22:59 06:59 14:59 Intake Total 300 480 Output Total 900 600 Balance -600 -120 Lab Results Last 24 Hours: Laboratory Results - last 24 hr 09/17/19 09/18/19 09/18/19 Range/Units 20:21 05:43 05:43 WBC 6.10 (4.0-11.0) K/uL RBC 3.48 L (4.30-5.90) M/uL Hgb 11.1 L (12.0-16.0) g/dL Hct 33.9 L (36.0-46.0) % MCV 97.4 (80.0-98.0) fL MCH 31.9 (27.0-32.0) pg MCHC 32.7 (31.0-37.0) g/dL RDW Std Deviation 50.8 (28.0-62.0) fl RDW Coeff of Drew 14 (11.0-15.0) % Plt Count 201 (150-400) K/uL MPV 10.80 (7.40-12.00) fL Neut % (Auto) 59.1 (48.0-80.0) % Lymph % (Auto) 26.9 (16.0-40.0) % [place] % (Auto) 6.9 (0.0-15.0) % Eos % (Auto) 6.6 (0.0-7.0) % Baso % (Auto) 0.5 (0.0-1.5) % Neut # (Auto) 3.6 (1.4-5.7) K/uL Lymph # (Auto) 1.6 (0.6-2.4) K/uL [place] # (Auto) 0.4 (0.0-0.8) K/uL Eos # (Auto) 0.4 (0.0-0.7) K/uL Baso # (Auto) 0.0 (0.0-0.1) K/uL Nucleated RBC % 0.0 /100WBC Nucleated RBCs # 0 K/uL Sodium 142 (136-145) mmol/L Potassium 4.1 (3.5-5.1) mmol/L Chloride 107 (98-107) mmol/L Carbon Dioxide 27.1 (21.0-32.0) mmol/L BUN 24 H (7.0-18.0) mg/dL Creatinine 1.0 (0.6-1.0) mg/dL Est Cr Clr Drug Dosing 45.26 mL/min Estimated GFR (MDRD) 53.3 ml/min Glucose 102 (74-106) mg/dL Calcium 8.3 L (8.5-10.1) mg/dL Urine Color YELLOW Urine Appearance SLT CLOUDY Urine pH 6.0 (5.0-8.0) Ur Specific [place] 1.025 (1.001-1.035) Urine Protein NEGATIVE (NEGATIVE) mg/dL Urine Glucose (UA) NEGATIVE (NEGATIVE) mg/dL Urine Ketones NEGATIVE (NEGATIVE) mg/dL Urine Occult Blood NEGATIVE (NEGATIVE) Urine Nitrite NEGATIVE (NEGATIVE) Urine Bilirubin NEGATIVE (NEGATIVE) Urine Urobilinogen 0.2 (<2.0) EU/dL Ur Leukocyte Esterase MODERATE H (NEGATIVE) Urine RBC 0-2 (0-2/HPF) Urine WBC 13-16 (0-5/HPF) Ur Epithelial Cells OCCASIONAL (NONE-FEW) Urine Bacteria FEW (NEGATIVE) Med Orders - Current: Current Medications Hydrocodone Bitart/Acetaminophen ([place] 325-10 Mg) 1 tab PO Q6H PRN PRN Reason: Pain Last Admin: 09/17/19 18:48 Dose: 1 tab Albuterol (Ventolin Hfa) 1 gm INH DAILY [facility] Last Admin: 09/17/19 08:35 Dose: 1 gm Amlodipine Besylate (Norvasc) 5 mg PO DAILY [facility] Last Admin: 09/17/19 08:35 Dose: 5 mg Aspirin (Halfprin) 81 mg PO DAILY [facility] Last Admin: 09/17/19 08:35 Dose: 81 mg Atorvastatin Calcium (Lipitor) 10 mg PO BEDTIME [facility] Last Admin: 09/17/19 20:27 Dose: 10 mg Docusate Sodium (Colace) 100 mg PO BID [facility] Last Admin: 09/17/19 20:30 Dose: Not Given Heparin Sodium (Porcine) (Heparin Sodium) 5,000 units SUBCUT Q8H [facility] Last Admin: 09/18/19 03:51 Dose: 5,000 units Ceftriaxone Sodium/Dextrose 1 (gm/ Premix) 50 mls @ 100 mls/hr IV Q24H [facility] Lisinopril (Prinivil) 10 mg PO DAILY [facility] Last Admin: 09/17/19 08:36 Dose: 10 mg Melatonin (Melatonin) 3 mg PO BEDTIME PRN PRN Reason: Insomnia Last Admin: 09/17/19 21:59 Dose: 3 mg Fluticasone/Salmeterol (Advair Diskus 100-50) 1 puff INH DAILY [facility] Last Admin: 09/17/19 08:34 Dose: 1 puff Venlafaxine HCl (Effexor Xr) 150 mg PO DAILY [facility] Last Admin: 09/17/19 08:36 Dose: 150 mg Discontinued Medications Hydrocodone Bitart/Acetaminophen ([place] 325-10 Mg) 1 tab PO ONETIME ONE Stop: 09/15/19 19:22 Last Admin: 09/15/19 19:31 Dose: 1 tab - Exam General: Alert, Cooperative, Other (awakens slightly from sleep, reports no pain and that she is tired and is back to bed.). No: Oriented Lungs: Clear to Auscultation, Normal Respiratory Effort Cardiovascular: Regular Rate, Regular Rhythm GI/Abdominal Exam: Normal Bowel Sounds, Soft, Non-Tender Extremities: Normal Inspection, Normal Range of Motion, Non-Tender, No Pedal Edema Skin: Ecchymosis (L eye and medial L knee with bullae ) Neurological: No New Focal Deficit Psy/Mental Status: Alert, Normal Affect, Normal Mood Sepsis Event Note - Evaluation Sepsis Screening Result: No Definite Risk - Focused Exam Vital Signs: Vital Signs Temp Pulse Resp BP Pulse Ox Pulse Ox 09/18/19 08:00 97.0 F 65 18 115/60 96 09/18/19 04:00 97.2 F 68 18 129/60 95 09/18/19 00:17 97.2 F 70 18 112/56 L 93 L 09/18/19 00:00 97 Date Exam was Performed: 09/18/19 Time Exam was Performed: 11:27 - Problem List & Annotations (1) UTI (urinary tract infection) SNOMED Code(s): 07855599 Code(s): N39.0 - URINARY TRACT INFECTION, SITE NOT SPECIFIED Status: Acute Current Visit: Yes Qualifiers: Urinary tract infection type: acute cystitis Hematuria presence: without hematuria Qualified Code(s): N30.00 - Acute cystitis without hematuria (2) Contusion of knee SNOMED Code(s): 29187895 Code(s): S80.00XA - CONTUSION OF UNSPECIFIED KNEE, INITIAL ENCOUNTER Status : Acute Current Visit: No (3) Fall SNOMED Code(s): 2308113, 810913911 Code(s): W19.XXXA - UNSPECIFIED FALL, INITIAL ENCOUNTER Status: Acute Current Visit: No Qualifiers: Encounter type: initial encounter Qualified Code(s): W19.XXXA - Unspecified fall, initial encounter (4) Delirium SNOMED Code(s): 8884166 Code(s): R41.0 - DISORIENTATION, UNSPECIFIED Status: Acute Current Visit : Yes (5) HTN (hypertension) SNOMED Code(s): 34296701 Code(s): I10 - ESSENTIAL (PRIMARY) HYPERTENSION Status: Chronic Current Visit: Yes Qualifiers: Hypertension type: essential hypertension Qualified Code(s): I10 - Essential (primary) hypertension (6) Dyslipidemia SNOMED Code(s): 086191946 Code(s): E78.5 - HYPERLIPIDEMIA, UNSPECIFIED Status: Chronic Current Visit: Yes (7) Chronic pain disorder SNOMED Code(s): 416198459 Code(s): G89.4 - CHRONIC PAIN SYNDROME Status: Chronic Current Visit: Yes (8) Dementia SNOMED Code(s): 40113206 Code(s): F03.90 - UNSPECIFIED DEMENTIA WITHOUT BEHAVIORAL DISTURBANCE Status: Chronic Current Visit: Yes Qualifiers: Dementia type: vascular dementia Dementia behavioral disturbance: without behavioral disturbance Qualified Code(s): F01.50 - Vascular dementia without behavioral disturbance - Problem List Review Problem List Initiated/Reviewed/Updated: Yes - My Orders Last 24 Hours: My Active Orders 09/18/19 08:15 cefTRIAXone [Rocephin in Dextrose,Iso-Osm 1 GM/50 ML] 1 gm Premix Bag 1 bag IV Q24H - Plan Plan:: 79 yo female admitted with left knee contusion and falls. 1. L knee contusion/Falls: Pain improved. PT consulted, feels patient is unsafe at this time to return to [facility]. Will monitor. May need to consider transition to skilled care at [place]. Continue PT. 2. Hx of dementia: Has seen Dr. Gaytan in the past, considered vascular dementia. Displaying signs of delirium due to acute injury and hospitalization. UA obtained which revealed UTI. 3. UTI: UC pending. Will start Rocephin this morning. Patient very tired this morning, given melatonin last night, has slept most of night. Awakens easily and is disoriented. 4. HTN/dyslipidemia: Stable, continue home medications, Lisinopril and Amlodipine as well as Statin and Aspirin. VTE prophylaxis: heparin Dispo: 1-2 days pending possible placement
[2019-09-18] MEDS: cefTRIAXone 1 GM in Premix Bag 1 BAG IV SCH (08:34)
[2019-09-18] MEDS: Aspirin 81 MG Tab.EC PO SCH (08:34)
[2019-09-18] MEDS: Venlafaxine 75 MG Cap.ER PO SCH (08:35)
[2019-09-18] MEDS: amLODIPine 5 MG Tab PO SCH (08:35)
[2019-09-18] MEDS: Lisinopril 10 MG Tab PO SCH (08:35)
[2019-09-18] MEDS: Docusate Sodium 100 MG Cap PO SCH ×2 (08:35→20:20)
[2019-09-18] MEDS: Fluticasone/Salmeterol 100-50 MCG Inhalation Powder 14/Diskus INH SCH (09:19)
[2019-09-18] MEDS: Albuterol 8 GM Inhaler INH SCH (09:20)
[2019-09-18] MEDS: Acetaminophen/HYDROcodone 325-10 MG Tab PO PRN (16:42)
[2019-09-18] MEDS: atorvaSTATin 10 MG Tab PO SCH (20:20)
[2019-09-19] MEDS: Acetaminophen/HYDROcodone 325-10 MG Tab PO PRN ×2 (00:16→18:40)
[2019-09-19] MEDS: Heparin Sodium 5,000 Units/ML Vial SUBCUT SCH ×3 (02:54→18:39)
[2019-09-19 06:43] LABS: CARBON DIOXIDE,CO2 26.8 mmol/L (21.0-32.0); POTASSIUM,K 4.3 mmol/L (3.5-5.1)
--- NOTE | 2019-09-19 07:45 | PCM.PN ---
- General Info Date of Service: 09/19/19 Admission Dx/Problem (Free Text): L knee contusion, fall Subjective Update: sitting up in chair, doing well this morning, finished breakfast. Reports no pain. Able to move L knee easily without pain. Up ambulating with assist of one and walker. No chest pain or SOB. Functional Status: Reports: Pain Controlled, Tolerating Diet, Ambulating, Urinating - Review of Systems General: Reports: No Symptoms. Denies: Fatigue, Malaise HEENT: Reports: No Symptoms. Denies: Headaches, Sore Throat Pulmonary: Reports: No Symptoms. Denies: Shortness of Breath Cardiovascular: Reports: No Symptoms. Denies: Chest Pain Genitourinary: Reports: No Symptoms. Denies: Dysuria Musculoskeletal: Reports: Joint Pain (L knee, mild but tolerable.) Neurological: Reports: No Symptoms Psychiatric: Reports: No Symptoms - Patient Data Vitals - Most Recent: Last Vital Signs Temp 97.5 F 09/19/19 04:00 Pulse 70 09/19/19 04:00 Resp 16 09/19/19 04:00 BP 111/59 L 09/19/19 04:00 Pulse Ox 95 09/19/19 04:00 Weight - Most Recent: 114.305 kg I&O - Last 24 Hours: Intake & Output 09/18/19 09/19/19 09/19/19 22:59 06:59 14:59 Intake Total 600 650 Output Total 500 500 Balance 100 150 Lab Results Last 24 Hours: Laboratory Results - last 24 hr 09/19/19 09/19/19 Range/Units 06:15 06:15 WBC 6.73 (4.0-11.0) K/uL RBC 3.53 L (4.30-5.90) M/uL Hgb 11.2 L (12.0-16.0) g/dL Hct 34.7 L (36.0-46.0) % MCV 98.3 H (80.0-98.0) fL MCH 31.7 (27.0-32.0) pg MCHC 32.3 (31.0-37.0) g/dL RDW Std Deviation 51.4 (28.0-62.0) fl RDW Coeff of Drew 14 (11.0-15.0) % Plt Count 216 (150-400) K/uL MPV 10.80 (7.40-12.00) fL Neut % (Auto) 56.3 (48.0-80.0) % Lymph % (Auto) 28.4 (16.0-40.0) % [place] % (Auto) 7.9 (0.0-15.0) % Eos % (Auto) 6.8 (0.0-7.0) % Baso % (Auto) 0.6 (0.0-1.5) % Neut # (Auto) 3.8 (1.4-5.7) K/uL Lymph # (Auto) 1.9 (0.6-2.4) K/uL [place] # (Auto) 0.5 (0.0-0.8) K/uL Eos # (Auto) 0.5 (0.0-0.7) K/uL Baso # (Auto) 0.0 (0.0-0.1) K/uL Nucleated RBC % 0.0 /100WBC Nucleated RBCs # 0 K/uL Sodium 140 (136-145) mmol/L Potassium 4.3 (3.5-5.1) mmol/L Chloride 106 (98-107) mmol/L Carbon Dioxide 26.8 (21.0-32.0) mmol/L BUN 23 H (7.0-18.0) mg/dL Creatinine 1.1 H (0.6-1.0) mg/dL Est Cr Clr Drug Dosing 41.15 mL/min Estimated GFR (MDRD) 47.8 ml/min Glucose 95 (74-106) mg/dL Calcium 8.5 (8.5-10.1) mg/dL Med Orders - Current: Current Medications Hydrocodone Bitart/Acetaminophen ([place] 325-10 Mg) 1 tab PO Q6H PRN PRN Reason: Pain Last Admin: 09/19/19 00:16 Dose: 1 tab Albuterol (Ventolin Hfa) 1 gm INH DAILY [facility] Last Admin: 09/18/19 09:20 Dose: 1 gm Amlodipine Besylate (Norvasc) 5 mg PO DAILY [facility] Last Admin: 09/18/19 08:35 Dose: 5 mg Aspirin (Halfprin) 81 mg PO DAILY [facility] Last Admin: 09/18/19 08:34 Dose: 81 mg Atorvastatin Calcium (Lipitor) 10 mg PO BEDTIME [facility] Last Admin: 09/18/19 20:20 Dose: 10 mg Docusate Sodium (Colace) 100 mg PO BID [facility] Last Admin: 09/18/19 20:20 Dose: 100 mg Heparin Sodium (Porcine) (Heparin Sodium) 5,000 units SUBCUT Q8H [facility] Last Admin: 09/19/19 02:54 Dose: 5,000 units Ceftriaxone Sodium/Dextrose 1 (gm/ Premix) 50 mls @ 100 mls/hr IV Q24H [facility] Last Admin: 09/18/19 08:34 Dose: 100 mls/hr Lisinopril (Prinivil) 10 mg PO DAILY [facility] Last Admin: 09/18/19 08:35 Dose: 10 mg Melatonin (Melatonin) 3 mg PO BEDTIME PRN PRN Reason: Insomnia Last Admin: 09/17/19 21:59 Dose: 3 mg Fluticasone/Salmeterol (Advair Diskus 100-50) 1 puff INH DAILY [facility] Last Admin: 09/18/19 09:19 Dose: 1 puff Venlafaxine HCl (Effexor Xr) 150 mg PO DAILY [facility] Last Admin: 09/18/19 08:35 Dose: 150 mg Discontinued Medications Hydrocodone Bitart/Acetaminophen ([place] 325-10 Mg) 1 tab PO ONETIME ONE Stop: 09/15/19 19:22 Last Admin: 09/15/19 19:31 Dose: 1 tab - Exam General: Alert, Cooperative, No Acute Distress. No: Oriented (disoriented to place and time, but easily reoriented. ) Lungs: Clear to Auscultation, Normal Respiratory Effort Cardiovascular: Regular Rate, Regular Rhythm GI/Abdominal Exam: Normal Bowel Sounds, Soft, Non-Tender Back Exam: Normal Inspection, Full Range of Motion Extremities: Normal Range of Motion, No Pedal Edema, Normal Capillary Refill, Joint Swelling (contusion and ecchymosis to L knee, bullae decreased in size. Fluctuance of contusion decreasing.) Wound/Incisions: Healing Well Neurological: No New Focal Deficit Psy/Mental Status: Alert, Normal Affect, Normal Mood Sepsis Event Note - Evaluation Sepsis Screening Result: No Definite Risk - Focused Exam Vital Signs: Vital Signs Temp Pulse Resp BP Pulse Ox 09/19/19 04:00 97.5 F 70 16 111/59 L 95 09/19/19 01:00 97.5 F 78 16 112/68 95 09/18/19 20:00 98.0 F 87 17 106/60 96 Date Exam was Performed: 09/19/19 Time Exam was Performed: 09:35 - Problem List & Annotations (1) UTI (urinary tract infection) SNOMED Code(s): 28489773 Code(s): N39.0 - URINARY TRACT INFECTION, SITE NOT SPECIFIED Status: Acute Current Visit: Yes Qualifiers: Urinary tract infection type: acute cystitis Hematuria presence: without hematuria Qualified Code(s): N30.00 - Acute cystitis without hematuria (2) Contusion of knee SNOMED Code(s): 37919755 Code(s): S80.00XA - CONTUSION OF UNSPECIFIED KNEE, INITIAL ENCOUNTER Status : Acute Current Visit: No (3) Fall SNOMED Code(s): 0723865, 244917519 Code(s): W19.XXXA - UNSPECIFIED FALL, INITIAL ENCOUNTER Status: Acute Current Visit: No Qualifiers: Encounter type: initial encounter Qualified Code(s): W19.XXXA - Unspecified fall, initial encounter (4) Delirium SNOMED Code(s): 4281767 Code(s): R41.0 - DISORIENTATION, UNSPECIFIED Status: Acute Current Visit : Yes (5) HTN (hypertension) SNOMED Code(s): 03294588 Code(s): I10 - ESSENTIAL (PRIMARY) HYPERTENSION Status: Chronic Current Visit: Yes Qualifiers: Hypertension type: essential hypertension Qualified Code(s): I10 - Essential (primary) hypertension (6) Dyslipidemia SNOMED Code(s): 179717209 Code(s): E78.5 - HYPERLIPIDEMIA, UNSPECIFIED Status: Chronic Current Visit: Yes (7) Chronic pain disorder SNOMED Code(s): 510538563 Code(s): G89.4 - CHRONIC PAIN SYNDROME Status: Chronic Current Visit: Yes (8) Dementia SNOMED Code(s): 26772616 Code(s): F03.90 - UNSPECIFIED DEMENTIA WITHOUT BEHAVIORAL DISTURBANCE Status: Chronic Current Visit: Yes Qualifiers: Dementia type: vascular dementia Dementia behavioral disturbance: without behavioral disturbance Qualified Code(s): F01.50 - Vascular dementia without behavioral disturbance - Problem List Review Problem List Initiated/Reviewed/Updated: Yes - My Orders Last 24 Hours: My Active Orders 09/18/19 08:15 cefTRIAXone [Rocephin in Dextrose,Iso-Osm 1 GM/50 ML] 1 gm Premix Bag 1 bag IV Q24H - Plan Plan:: 79 yo female admitted with left knee contusion and falls. 1. L knee contusion/Falls: Pain improved. PT consulted, doing well with ambulation with one assist and walker. Recommend placement. Social work discussed with family, they feel the same, will transition to [facility], likely . Will monitor. Continue PT. 2. Hx of dementia: Has seen Dr. Gaytan in the past, considered vascular dementia. appears delirium as cleared. 3. UTI: UC pending. Continue Rocephin Alert, disoriented per baseline. 4. HTN/dyslipidemia: Stable, continue home medications, Lisinopril and Amlodipine as well as Statin and Aspirin. VTE prophylaxis: heparin Dispo: Pending placement on .
[2019-09-19] MEDS: Aspirin 81 MG Tab.EC PO SCH (08:01)
[2019-09-19] MEDS: cefTRIAXone 1 GM in Premix Bag 1 BAG IV SCH (08:01)
[2019-09-19] MEDS: Docusate Sodium 100 MG Cap PO SCH ×2 (08:02→20:45)
[2019-09-19] MEDS: Venlafaxine 75 MG Cap.ER PO SCH (08:02)
[2019-09-19] MEDS: amLODIPine 5 MG Tab PO SCH (08:02)
[2019-09-19] MEDS: Lisinopril 10 MG Tab PO SCH (08:02)
[2019-09-19] MEDS: Albuterol 8 GM Inhaler INH SCH (09:28)
[2019-09-19] MEDS: Fluticasone/Salmeterol 100-50 MCG Inhalation Powder 14/Diskus INH SCH (09:28)
[2019-09-19] MEDS: atorvaSTATin 10 MG Tab PO SCH (20:44)
[2019-09-20] MEDS: Heparin Sodium 5,000 Units/ML Vial SUBCUT SCH ×3 (03:32→18:40)
[2019-09-20] MEDS: cefTRIAXone 1 GM in Premix Bag 1 BAG IV SCH (08:00)
[2019-09-20] MEDS: Venlafaxine 75 MG Cap.ER PO SCH (08:11)
[2019-09-20] MEDS: Aspirin 81 MG Tab.EC PO SCH (08:11)
[2019-09-20] MEDS: Docusate Sodium 100 MG Cap PO SCH ×2 (08:11→20:30)
[2019-09-20] MEDS: Fluticasone/Salmeterol 100-50 MCG Inhalation Powder 14/Diskus INH SCH (09:11)
[2019-09-20] MEDS: Albuterol 8 GM Inhaler INH SCH (09:11)
--- NOTE | 2019-09-20 09:33 | PCM.PN ---
- General Info Date of Service: 09/20/19 Subjective Update: Bedside: denies any new complaints except itchy skin over entire lower back; states knee looks the same but denies any pain; no other acute issues brought up this AM Functional Status: Reports: Pain Controlled - Review of Systems General: Reports: No Symptoms HEENT: Reports: No Symptoms Pulmonary: Reports: No Symptoms Cardiovascular: Reports: No Symptoms Gastrointestinal: Reports: No Symptoms Musculoskeletal: Reports: Other (minimal knee pain w/ ambualtion ) Skin: Reports: Pruritis Neurological: Reports: No Symptoms - Patient Data Vitals - Most Recent: Last Vital Signs Temp 97 F 09/20/19 07:46 Pulse 63 09/20/19 07:46 Resp 16 09/20/19 07:46 BP 124/62 09/20/19 07:46 Pulse Ox 95 09/20/19 07:46 Weight - Most Recent: 252 lb I&O - Last 24 Hours: Intake & Output 09/19/19 09/20/19 09/20/19 22:59 06:59 14:59 Intake Total 560 300 Output Total 300 Balance 560 0 Irineo Results Last 24 Hours: Microbiology 09/17/19 20:21 Urine Culture - Final Urine, Clean Catch MIXED ALEISHA 10,000-100,000 CFU/ML Med Orders - Current: Current Medications Hydrocodone Bitart/Acetaminophen ([place] 325-10 Mg) 1 tab PO Q6H PRN PRN Reason: Pain Last Admin: 09/19/19 18:40 Dose: 1 tab Albuterol (Ventolin Hfa) 1 gm INH DAILY [facility] Last Admin: 09/20/19 09:11 Dose: 1 gm Aspirin (Halfprin) 81 mg PO DAILY [facility] Last Admin: 09/20/19 08:11 Dose: 81 mg Atorvastatin Calcium (Lipitor) 10 mg PO BEDTIME [facility] Last Admin: 09/19/19 20:44 Dose: 10 mg Docusate Sodium (Colace) 100 mg PO BID [facility] Last Admin: 09/20/19 08:11 Dose: 100 mg Heparin Sodium (Porcine) (Heparin Sodium) 5,000 units SUBCUT Q8H [facility] Last Admin: 09/20/19 03:32 Dose: 5,000 units Ceftriaxone Sodium/Dextrose 1 (gm/ Premix) 50 mls @ 100 mls/hr IV Q24H [facility] Last Admin: 09/20/19 08:00 Dose: 100 mls/hr Melatonin (Melatonin) 3 mg PO BEDTIME PRN PRN Reason: Insomnia Last Admin: 09/17/19 21:59 Dose: 3 mg Multi-Ingredient Lotion (Lubriderm Daily Moisture Lotion) 0 ml TOP DAILY [facility] Fluticasone/Salmeterol (Advair Diskus 100-50) 1 puff INH DAILY [facility] Last Admin: 09/20/19 09:11 Dose: 1 puff Venlafaxine HCl (Effexor Xr) 150 mg PO DAILY [facility] Last Admin: 09/20/19 08:11 Dose: 150 mg Discontinued Medications Hydrocodone Bitart/Acetaminophen ([place] 325-10 Mg) 1 tab PO ONETIME ONE Stop: 09/15/19 19:22 Last Admin: 09/15/19 19:31 Dose: 1 tab Amlodipine Besylate (Norvasc) 5 mg PO DAILY [facility] Last Admin: 09/19/19 08:02 Dose: Not Given Lisinopril (Prinivil) 10 mg PO DAILY [facility] Last Admin: 09/19/19 08:02 Dose: Not Given - Exam General: Alert, Oriented, Cooperative, No Acute Distress HEENT: EOMI Lungs: Clear to Auscultation, Normal Respiratory Effort Cardiovascular: Regular Rate, Regular Rhythm Extremities: Other (left knee: swelling w/ ecchymosis unchanged from yesterday; minimal tenderness...) Skin: Warm, Dry, Other (mild erythematous rash over mid back consistent w. acne ; ). No: Rash Neurological: No New Focal Deficit, Other (memory lapses ) Psy/Mental Status: Alert, Normal Affect Sepsis Event Note - Evaluation Sepsis Screening Result: No Definite Risk - Focused Exam Vital Signs: Vital Signs Temp Pulse Resp BP Pulse Ox 09/20/19 07:46 97 F 63 16 124/62 95 09/20/19 04:19 97 F 61 17 121/65 95 09/19/19 23:59 97.1 F 72 18 119/60 94 L Date Exam was Performed: 09/20/19 Time Exam was Performed: 09:30 - Problem List Review Problem List Initiated/Reviewed/Updated: Yes - My Orders Last 24 Hours: My Active Orders 09/20/19 09:30 Lanolin/Min Oil/NaCl/Pet,Wh [Lubriderm Daily Moisture Lotion] See Dose Instructions TOP DAILY - Plan Plan:: 79 yo female admitted with left knee contusion and falls. 1. L knee contusion/Falls: Pain improved. PT consulted, doing well with ambulation with one assist and walker. Recommend placement. Social work discussed with family, they feel the same, will transition to [facility], likely . Will monitor. Continue PT. 2. Hx of dementia: Has seen Dr. Gaytan in the past, considered vascular dementia. appears delirium as cleared. 3. UTI: UC : mixed aleisha ; Continue Rocephin Alert, disoriented per baseline. 4. HTN/dyslipidemia: Stable, continue home medications, Lisinopril and Amlodipine as well as Statin and Aspirin. VTE prophylaxis: heparin Dispo: Pending placement on .
[2019-09-20] MEDS: Lanolin/Mineral Oil/NaCl/Petrolatum Lotion 177 ML Bottle TOP SCH (11:13)
[2019-09-20] MEDS: Acetaminophen/HYDROcodone 325-10 MG Tab PO PRN (18:40)
[2019-09-20] MEDS: atorvaSTATin 10 MG Tab PO SCH (20:30)
[2019-09-21] MEDS: Acetaminophen/HYDROcodone 325-10 MG Tab PO PRN ×2 (01:17→08:47)
[2019-09-21] MEDS: Heparin Sodium 5,000 Units/ML Vial SUBCUT SCH ×2 (03:45→10:51)
[2019-09-21] MEDS: cefTRIAXone 1 GM in Premix Bag 1 BAG IV SCH (08:38)
[2019-09-21] MEDS: Docusate Sodium 100 MG Cap PO SCH (08:47)
[2019-09-21] MEDS: Aspirin 81 MG Tab.EC PO SCH (08:48)
[2019-09-21] MEDS: Venlafaxine 75 MG Cap.ER PO SCH (08:49)
[2019-09-21] MEDS: Lanolin/Mineral Oil/NaCl/Petrolatum Lotion 177 ML Bottle TOP SCH (08:51)
[2019-09-21] MEDS: Fluticasone/Salmeterol 100-50 MCG Inhalation Powder 14/Diskus INH SCH (08:57)
[2019-09-21] MEDS: Albuterol 8 GM Inhaler INH SCH (08:57)
--- NOTE | 2019-09-21 09:03 | PCM.DCSUM1 ---
Discharge Summary - Hospital Course Brief History: Patient is a 79-year-old female with a significant past medical history of hypercholesterolemia, hypertension presenting yesterday after having a fall causing a contusion to the left knee. She has a history of left knee replacement and also does have a history of dementia. ED Course: X-ray of knee showed no acute fracture and or dislocation. Significant swelling appreciated at discharge ;patient was unable to ambulate secondary to pain. Admitted for observation. Bedside: Patient endorsing minimal pain in left knee. States she can move her knee however cannot recall some of the details of the fall. Patient does have a history of dementia per chart review; patient however is not sure about this diagnosis. Diagnosis: Stroke: No - Discharge Data Discharge Date: 09/21/19 Discharge Disposition: DC/Tfer to SNF 03 Condition: Good - Referral to Home Health Primary Care Physician: PCP Unknown - Discharge Diagnosis/Problem(s) (1) UTI (urinary tract infection) SNOMED Code(s): 91941486 ICD Code: N39.0 - URINARY TRACT INFECTION, SITE NOT SPECIFIED Status: Acute Current Visit: Yes Qualifiers: Urinary tract infection type: acute cystitis Hematuria presence: without hematuria Qualified Code(s): N30.00 - Acute cystitis without hematuria (2) Contusion of knee SNOMED Code(s): 88358613 ICD Code: S80.00XA - CONTUSION OF UNSPECIFIED KNEE, INITIAL ENCOUNTER Status: Acute Current Visit: No (3) Fall SNOMED Code(s): 5340550, 523721671 ICD Code: W19.XXXA - UNSPECIFIED FALL, INITIAL ENCOUNTER Status: Acute Current Visit: No Qualifiers: Encounter type: initial encounter Qualified Code(s): W19.XXXA - Unspecified fall, initial encounter (4) Delirium SNOMED Code(s): 6393407 ICD Code: R41.0 - DISORIENTATION, UNSPECIFIED Status: Acute Current Visit : Yes (5) HTN (hypertension) SNOMED Code(s): 18835282 ICD Code: I10 - ESSENTIAL (PRIMARY) HYPERTENSION Status: Chronic Current Visit: Yes Qualifiers: Hypertension type: essential hypertension Qualified Code(s): I10 - Essential (primary) hypertension (6) Dyslipidemia SNOMED Code(s): 314240356 ICD Code: E78.5 - HYPERLIPIDEMIA, UNSPECIFIED Status: Chronic Current Visit: Yes (7) Chronic pain disorder SNOMED Code(s): 812706055 ICD Code: G89.4 - CHRONIC PAIN SYNDROME Status: Chronic Current Visit: Yes (8) Dementia SNOMED Code(s): 36693564 ICD Code: F03.90 - UNSPECIFIED DEMENTIA WITHOUT BEHAVIORAL DISTURBANCE Status: Chronic Current Visit: Yes Qualifiers: Dementia type: vascular dementia Dementia behavioral disturbance: without behavioral disturbance Qualified Code(s): F01.50 - Vascular dementia without behavioral disturbance - Patient Summary/Data Consults: Consultations 09/16/19 00:52 PT Evaluation and Treatment [CONS] Routine - Patient Instructions Diet: Regular Diet as Tolerated Activity: As Tolerated Driving: Do Not Drive Showering/Bathing: May Shower Notify Provider of: Fever, Increased Pain, Swelling and Redness, Drainage, Nausea and/or Vomiting Other/Special Instructions: PT/OT/ST to evaluate and treat - Discharge Plan *PRESCRIPTION DRUG MONITORING PROGRAM REVIEWED*: Not Applicable *COPY OF PRESCRIPTION DRUG MONITORING REPORT IN PATIENT GARY: Not Applicable Prescriptions/Med Rec: Hydrocodone/Acetaminophen [[place] 10-325 Tablet] 1 each PO Q6HR PRN #10 tablet PRN Reason: Pain Cephalexin [Keflex] 500 mg PO BID #4 capsule Home Medications: Home Meds Albuterol Sulfate [Proair Respiclick] 2 puff INH Q4H PRN 06/18/18 [History] Fluticasone/Salmeterol [Advair 100-50] 1 puff INH BID 06/18/18 [History] atorvaSTATin [Lipitor] 10 mg PO BEDTIME 06/18/18 [History] Acetaminophen [Tylenol] 650 mg PO Q4H PRN 09/16/19 [History] Amoxicillin 2,000 mg PO ONETIME PRN 09/16/19 [History] Aspirin [Halfprin] 81 mg PO DAILY 09/16/19 [History] Calcium Carbonate [Calcium] 600 mg PO TID 09/16/19 [History] Carboxymethylcellulose Sodium [Refresh Tears] 1 drop EYEBOTH BID 09/16/19 [ History] Cholecalciferol (Vitamin D3) [Vitamin D3] 1,000 unit PO DAILY 09/16/19 [History] Dextran 70/Hypromellose [Artificial Tears Eye Drops] 1 drop EYEBOTH Q6H PRN [History] Docusate Sodium [Colace] 100 mg PO BID 09/16/19 [History] Erythromycin Base [Erythromycin 0.5% Ophth Oint] 1 applic EYEBOTH BID 09/16/19 [ History] Folic Acid 1 mg PO DAILY 09/16/19 [History] Loperamide HCl [Imodium A-D] 2 mg PO ASDIRECTED PRN 09/16/19 [History] Mag Hydrox/Al Hydrox/Simeth [Maalox Maximum Strength Susp] 1 tbsp PO Q6H PRN [History] Magnesium Hydroxide [Milk of Magnesia] 30 ml PO DAILY PRN 09/16/19 [History] Venlafaxine HCl [Venlafaxine ER] 150 mg PO DAILY 09/16/19 [History] guaiFENesin 100 mg PO Q4H PRN 09/16/19 [History] Cephalexin [Keflex] 500 mg PO BID #4 capsule 09/21/19 [Rx] Hydrocodone/Acetaminophen [[place] 10-325 Tablet] 1 each PO Q6HR PRN #10 tablet [Rx] Oxygen Therapy Mode: Room Air Patient Handouts: Acetaminophen; Hydrocodone tablets or capsules, Contusion, [id number], Cephalexin tablets or capsules Referrals: Mauro Sebastian MD [Ordering Only Provider] - - Discharge Summary/Plan Comment DC Time >30 min.: No Discharge Summary/Plan Comment: Admitting Diagnoses: Fall L knee contusion Discharge Diagnoses: L Knee contusion Unsteady gait UTI- UC mixed aleisha Other pmh: Dementia HTN Chronic pain Sherin was admitted due to frequent falls at home. THis fall she hit her head and landed on her L knee leaving significant contusion to L knee and unstable gait. She was admitted and noted to have UTI. Head CT obtained was negative for acute bleeding, mass or CVA. Delirium was noted within 24 hours of admission. Rocephin was started for UTI and within 24 hours after antibiotic started, delirium had cleared. L knee contusion continues with significant bruising and fluctuance to medial edge of patella. She is able to ambulated well with assist of 1 and walker. She is able to move knee without significant pain. She is tolerating pain well with [place] 10/325. She currently is living alone in the [facility], but it is felt by family and staff at [facility] she is unable to continung living alone. She will be transitioned to [facility] at this time. During her stay blood pressures have been on the softer side, we have been hold Amlodipine and Lisinopril. As she continues to improve, these may need to be restarted. Iwtabby continue Keflex for a total of 5 days, 2 more days of outpatient therapy for UTI. I will speak with Dr Juárez regarding admission to [place]. She is to return to ED or clinic if concerns should arise. - General Info Date of Service: 09/21/19 Admission Dx/Problem (Free Text: L knee contusion, fall Subjective Update: Reports she didn't sleep well last night, very tired this morning. Denies pain. Reports knee feels ok this morning. No other concerns, just asking when she is going home. Functional Status: Reports: Pain Controlled, Tolerating Diet, Ambulating, Urinating - Review of Systems Pulmonary: Reports: No Symptoms. Denies: Shortness of Breath Cardiovascular: Reports: No Symptoms. Denies: Chest Pain Gastrointestinal: Reports: No Symptoms. Denies: Abdominal Pain, Nausea, Vomiting Musculoskeletal: Reports: No Symptoms Neurological: Reports: No Symptoms Psychiatric: Reports: No Symptoms - Patient Data Vitals - Most Recent: Last Vital Signs Temp 98.5 F 09/21/19 03:47 Pulse 67 09/21/19 03:47 Resp 18 09/21/19 03:47 BP 121/64 09/21/19 03:47 Pulse Ox 94 L 09/21/19 03:47 Weight - Most Recent: 114.305 kg I&O - Last 24 hours: Intake & Output 09/20/19 09/21/19 09/21/19 22:59 06:59 14:59 Intake Total 1220 700 Output Total 100 Balance 1220 600 Med Orders - Current: Current Medications Hydrocodone Bitart/Acetaminophen ([place] 325-10 Mg) 1 tab PO Q6H PRN PRN Reason: Pain Last Admin: 09/21/19 08:47 Dose: 1 tab Albuterol (Ventolin Hfa) 1 gm INH DAILY [facility] Last Admin: 09/21/19 08:57 Dose: 1 gm Aspirin (Halfprin) 81 mg PO DAILY [facility] Last Admin: 09/21/19 08:48 Dose: 81 mg Atorvastatin Calcium (Lipitor) 10 mg PO BEDTIME [facility] Last Admin: 09/20/19 20:30 Dose: 10 mg Docusate Sodium (Colace) 100 mg PO BID [facility] Last Admin: 09/21/19 08:47 Dose: 100 mg Heparin Sodium (Porcine) (Heparin Sodium) 5,000 units SUBCUT Q8H [facility] Last Admin: 09/21/19 03:45 Dose: 5,000 units Ceftriaxone Sodium/Dextrose 1 (gm/ Premix) 50 mls @ 100 mls/hr IV Q24H [facility] Last Admin: 09/21/19 08:38 Dose: 100 mls/hr Melatonin (Melatonin) 3 mg PO BEDTIME PRN PRN Reason: Insomnia Last Admin: 09/17/19 21:59 Dose: 3 mg Multi-Ingredient Lotion (Lubriderm Daily Moisture Lotion) 0 ml TOP DAILY [facility] Last Admin: 09/21/19 08:51 Dose: 1 applic Fluticasone/Salmeterol (Advair Diskus 100-50) 1 puff INH DAILY [facility] Last Admin: 09/21/19 08:57 Dose: 1 puff Venlafaxine HCl (Effexor Xr) 150 mg PO DAILY [facility] Last Admin: 09/21/19 08:49 Dose: 150 mg Discontinued Medications Hydrocodone Bitart/Acetaminophen ([place] 325-10 Mg) 1 tab PO ONETIME ONE Stop: 09/15/19 19:22 Last Admin: 09/15/19 19:31 Dose: 1 tab Amlodipine Besylate (Norvasc) 5 mg PO DAILY [facility] Last Admin: 09/19/19 08:02 Dose: Not Given Lisinopril (Prinivil) 10 mg PO DAILY [facility] Last Admin: 09/19/19 08:02 Dose: Not Given - Exam General: Reports: Alert, Oriented, Cooperative Lungs: Reports: Clear to Auscultation, Normal Respiratory Effort Cardiovascular: Reports: Regular Rate, Regular Rhythm GI/Abdominal Exam: Normal Bowel Sounds, Soft, Non-Tender Back Exam: Reports: Normal Inspection, Full Range of Motion Extremities: Normal Range of Motion (able to move L knee without pain) Skin: Reports: Warm, Dry, Ecchymosis (Bruising noted to L eye, improving. Bruising and fluctuance noted to L knee. Fluctuance has improved as well as pain. Bullae have almost nearly drained, leaving some healed skin abrasions. No erythema noted. ). Denies: Intact Wound/Incisions: Denies: Erythema Neurological: Reports: No New Focal Deficit Psy/Mental Status: Reports: Alert, Normal Affect, Normal Mood
== END 2019-09-21 13:00 | DRG 605 ==
LOC: MW.ED 18:13 → MW.MS 21:47 → OBSVTOIN 09-17 13:25
PROVIDERS: ADMIT Internal Medicine; ATTEND Internal Medicine
DX: S80.02XA Contusion of left knee, initial encounter (principal); N30.00 Acute cystitis without hematuria; I10 Essential (primary) hypertension; K58.9 Irritable bowel syndrome, unspecified; E78.5 Hyperlipidemia, unspecified; G89.4 Chronic pain syndrome; F01.50 Vascular dementia, unspecified severity, without behavioral disturbance, psychotic disturbance, mood disturbance, and anxiety; R26.9 Unspecified abnormalities of gait and mobility; F03.90 Unspecified dementia, unspecified severity, without behavioral disturbance, psychotic disturbance, mood disturbance, and anxiety; Z88.8 Allergy status to other drugs, medicaments and biological substances; Z96.652 Presence of left artificial knee joint; E78.00 Pure hypercholesterolemia, unspecified; M19.90 Unspecified osteoarthritis, unspecified site; M79.7 Fibromyalgia; F41.9 Anxiety disorder, unspecified; H04.123 Dry eye syndrome of bilateral lacrimal glands; F32.9 Major depressive disorder, single episode, unspecified; W19.XXXA Unspecified fall, initial encounter; Z79.82 Long term (current) use of aspirin; Z79.899 Other long term (current) drug therapy; Z88.6 Allergy status to analgesic agent; Z87.891 Personal history of nicotine dependence
CPT/HCPCS: 36415 ×2; 70450; 73562; 80048 ×2; 85025 ×2; 97162; 99285; A9270 ×13; J1644 ×4; 81001; 87086; 94640; 94664; 96372; 97530-GP; 99284; G0378; J0696

== ENCOUNTER 2021-10-04 15:39 | Emergency (ER) | payer MEDICARE, OTHER ==
[2021-10-04] MEDS ORDERED: Acetaminophen 325 MG Tab PO ONE (17:35)
[2021-10-04] MEDS ORDERED: Diphtheria,Pertussis(Acell),Tetanus Vaccine 0.5 ML Syringe IM ONE (17:35)
== END 2021-10-04 18:53 | disposition home or self-care (01) ==
LOC: MW.ED 15:39
DX: S01.01XA Laceration without foreign body of scalp, initial encounter (principal); M25.551 Pain in right hip; M25.552 Pain in left hip; E78.00 Pure hypercholesterolemia, unspecified; Z88.8 Allergy status to other drugs, medicaments and biological substances; Z79.82 Long term (current) use of aspirin; Z79.899 Other long term (current) drug therapy; Z23 Encounter for immunization; Z20.822 Contact with and (suspected) exposure to COVID-19; W18.30XA Fall on same level, unspecified, initial encounter
CPT/HCPCS: 12002; 70450; 72125; 73502; 90471; 90715; 99284; A9270; U0002; 73521; 73521-26